=== PATIENT | female | born 1945 | race Hispanic/Latino ===

== ENCOUNTER → 2023-05-16 | Outpatient (CLI) | payer OTHER | END | disposition home or self-care (01) | LOC: RAH 11:20 | PROVIDERS: ATTEND Internal Medicine | DX: R60.0 Localized edema (principal) | CPT/HCPCS: 93971 ==

== ENCOUNTER 2025-01-18 15:57 | Emergency (ER) | payer OTHER, MEDICARE ==
[~2025-01-18] VITALS: Ht 154.9 cm; Wt 54.0 kg
[2025-01-18 16:36] LABS: BASOPHILS # (AUTO) 0.07 K/uL (0.00-0.20); BASOPHILS % (AUTO) 0.6 % (0.0-5.0); EOSINOPHILS % (AUTO) 2.5 % (0.0-8.0); IMMATURE GRANULOCYTE ABSOLUTE 0.04 K/uL (0-1); LYMPHOCYTES # (AUTO) 2.3 K/uL (1.0-4.8); LYMPHOCYTES % (AUTO) 19.4 % (21.0-51.0); MEAN CORPUSCULAR HEMOGLOBIN 31.7 pg (27.0-33.0); MEAN CORPUSCULAR HGB CONC 31.4 g/dL (32.0-36.0); MEAN CORPUSCULAR VOLUME 100.9 fL (79-99); MONOCYTES # (AUTO) 0.6 K/uL (0.1-1.0); MONOCYTES % (AUTO) 4.7 % (3.0-13.0); NEUTROPHILS # (AUTO) 8.7 K/uL (1.8-7.7); NEUTROPHILS % (AUTO) 72.5 % (40.0-77.0); PLATELET COUNT (AUTO) 306 K/uL (130-400); RED BLOOD CELL COUNT(AUTO) 2.18 MIL/uL (4.00-5.50); RED CELL DISTRIBUTION WIDTH 14.7 % (11.0-15.5)
--- NOTE | 2025-01-18 16:40 | ERN ---
General Chief Complaint: Chest Pain Stated Complaint: CHEST PAIN Time Seen by MD: 15:58 Source: patient, family History of Present Illness Initial Comments Patient is a an 79-year-old female coming in complaining of chest pressure chest discomfort. Patient states that that began yesterday and today feels worse. ALong with the she states that she has had some neck discomfort. Allergies: Coded Allergies: alendronate sodium (Unverified Allergy, Unknown, 01/18/25) amitriptyline (Unverified Allergy, Unknown, 01/18/25) Past Medical History Past Medical History: Arthritis, Cancer Medical History Other: KIDNEY CANCER Past Surgical History: Other Surgical History Other: BILATERAL ARM SURGERIES WITH CADAVER BONE ROS Dictation CONSTITUTIONAL: NO CHILLS, NO FEVER, NO WEAKNESS, NO DIAPHORESIS, NO MALAISE. HEAD/FACE: NO SIGNS OF TRAUMA. EENT: NO EYE PAIN, NO BLURRED VISION, NO TEARING, NO DOUBLE VISION, NO EAR PAIN, NO EAR DISCHARGE, NO NOSE PAIN, NO NASAL CONGESTION, NO THROAT PAIN, NO THROAT SWELLING, NO MOUTH PAIN. RESPIRATORY: NO COUGH, NO ORTHOPNEA, NO SOB, NO STRIDOR, NO WHEEZING. CARDIOVASCULAR: CHEST PAIN, NO EDEMA, NO PALPITATIONS, NO SYNCOPE. GASTROINTESTINAL/ABDOMINAL: NO ABDOMINAL PAIN, NO CONSTIPATION, NO DIARRHEA, N O NAUSEA, NO VOMITING. GENITOURINARY: NO ABNORMAL DISCHARGE, NO DYSURIA, NO FREQUENT URINATION, NO HEMATURIA. NO COMPLAINTS OF PAIN IN THE GENITALS. MUSCULOSKELETAL: NO BACK PAIN, NO GOUT, NO JOINT PAIN, NO JOINT SWELLING, NO MUSCLE PAIN, NO MUSCLE STIFFNESS, NO NECK PAIN. INTEGUMENTARY: NO CHANGE IN COLOR, NO CHANGE IN HAIR/NAILS, NO DRYNESS, NO LESION, NO LUMPS, NO RASH. NEUROLOGICAL/PSYCH: NO ANXIETY, NOT DEPRESSED, NO EMOTIONAL PROBLEM, NO HEADACHE, NO NUMBNESS, NO PRE-EXISTING DEFICIT, NO HISTORY OF SEIZURES, NO TREMORS, NO WEAKNESS. HEMATOLOGIC/LYMPHATIC: NOT ANEMIC, NO HISTORY OF BLOOD CLOTS, NO APPARENT BLEEDING, NO BRUISING, GLANDS NOT SWOLLEN. ALL SYSTEMS NEGATIVE, EXCEPT NOTED. Physical Exam Physical Exam Dictation VITAL SIGNS: REVIEWED. GENERAL APPEARANCE: ALERT, ORIENTED X3, NO ACUTE DISTRESS, OBESE. HEAD AND FACE: NON-TRAUMATIC. EYES: PERRL, PINK CONJUNCTIVAS, EYELID NO TRAUMA, ANTERIOR CHAMBER CLEAR. EARS: PINNAS INTACT AND NO SIGNS OF TRAUMA OR ERYTHEMA. EAR CANALS CLEAR AND NO DISCHARGE. TMS NO ERYTHEMA. NOSE: NO DISCHARGE, NO BLEEDING. OROPHARYNX: MOUTH NORMAL, TEETH NO CARIES, TONGUE PINK. PHARYNX CLEAR, NO ERYTHEMA. TONSILS NO EXUDATES, NO ABSCESSES NOTED. MUCOUS MEMBRANE MOIST. NECK: SUPPLE, NON-TENDER, NO THYROMEGALY, NO MASSES, NO JVD, NO BRUITS. BREAST: DEFERRED. CHEST: NO TENDERNESS, NO CREPITUS, NO PARADOXICAL MOVEMENT, NO RETRACTIONS. LUNGS: CLEAR, WELL-VENTILATED, SYMMETRIC, NO RALES, NO WHEEZING, NO RHONCHI, NO STRIDOR, GOOD BREATH SOUNDS BILATERALLY. HEART: REGULAR RATE, REGULAR RHYTHM, NO MURMUR, NO GALLOPS. VASCULAR: NO PERIPHERAL EDEMA. ABDOMEN: SOFT, POSITIVE BOWEL SOUNDS, NONDISTENDED, NO GUARDING, NONTENDER, NO REBOUND, NO MASSES NO HEPATOMEGALY, NO SPLENOMEGALY, NO VO'S SIGN, NO HERNIAS. RECTAL: DEFERRED. GENITAL: DEFERRED. NEUROLOGICAL: NORMAL SPEECH, GROSS MOTOR FUNCTION INTACT, GROSS SENSORY FUNCTION INTACT. MUSCULOSKELETAL: NECK NONTENDER, FULL RANGE OF MOTION, BACK NONTENDER, FULL RANGE OF MOTION. EXTREMITIES: NONTENDER, FULL RANGE OF MOTION. SKIN: COLOR PINK, DRY, NO TURGOR, NO RASH, NO LACERATIONS, NO ABRASIONS, NO CONTUSIONS. LYMPHATICS: DEFERRED. Results Laboratory and Microbiology Lab and Micro Result Laboratory Tests Test 01/18/25 16:26 01/18/25 16:49 01/18/25 17:48 White Blood Count 12.0 K/uL (4.8-10.8) H Red Blood Count 2.18 MIL/uL (4.00-5.50) L Hemoglobin 6.9 g/dL (12.0-16.0) *L Hematocrit 22.0 % (36-48) L Mean Corpuscular Volume 100.9 fL (79-99) H Mean Corpuscular Hemoglobin 31.7 pg (27.0-33.0) Mean Corpuscular Hemoglobin Concent 31.4 g/dL (32.0-36.0) L Red Cell Distribution Width 14.7 % (11.0-15.5) Platelet Count 306 K/uL (130-400) Mean Platelet Volume 11.9 fL (7.5-10.5) H Immature Granulocyte % (Auto) 0.3 % (0-1) Neutrophils (%) (Auto) 72.5 % (40.0-77.0) Lymphocytes (%) (Auto) 19.4 % (21.0-51.0) L Monocytes (%) (Auto) 4.7 % (3.0-13.0) Eosinophils (%) (Auto) 2.5 % (0.0-8.0) Basophils (%) (Auto) 0.6 % (0.0-5.0) Neutrophils # (Auto) 8.7 K/uL (1.8-7.7) H Lymphocytes # (Auto) 2.3 K/uL (1.0-4.8) Monocytes # (Auto) 0.6 K/uL (0.1-1.0) Eosinophils # (Auto) 0.30 K/uL (0.00-0.70) Basophils # (Auto) 0.07 K/uL (0.00-0.20) Absolute Immature Granulocyte (auto 0.04 K/uL (0-1) Nucleated Red Blood Cells 0.0 % (0.0-0.19) Prothrombin Time 9.9 SEC (9.6-11.6) Prothromb Time International Ratio <= 0.93 (0.85-1.15) Activated Partial Thromboplast Time 23.0 SEC (26.3-35.5) L B-Type Natriuretic Peptide 473 pg/mL (0-100) H Sodium Level 137 mmol/L (136-145) Potassium Level 4.9 mmol/L (3.5-5.1) Chloride Level 107 mmol/L (101-111) Carbon Dioxide Level 19 mmol/L (21-32) L Blood Urea Nitrogen 37 mg/dL (7-18) H Creatinine 2.2 mg/dL (0.5-1.0) H Glomerular Filtration Rate Calc 22 mL/min (>90) Random Glucose 109 mg/dL (70-105) H Total Calcium 8.2 mg/dL (8.5-10.1) L Magnesium Level 2.50 mg/dL (1.80-2.40) H Total Creatine Kinase 88 U/L (21-232) Troponin I High Sensitivity 8.2 ng/L (4-50) 8 ng/L (4-50) Labs Reviewed?: Yes EKG/XRAY/US/CT/MRI EKG Comment 01/18/2025 TIME 4:04 P.M. VENTRICULAR RATE 85 SINUS RHYTHM SC [address] WAVE ELEVATION OR DEPRESSION X-RAY Comment [facility] [address] [place] [address] IMAGING REPORT Signed PATIENT: JOVANA BOWDEN MR#: [id number] : 1945 SEX: F AGE: 79 LOCATION: [facility] ORDER 1604 STATUS: REG ER REPORT#: [id number] SERVICE 1602 REASON: cp ORDERING PHYSICIAN: MATILDE JORDAN MD PROCEDURE: CXR1VW - CHEST 1VW CHEST 1VW HISTORY: Chest pain COMPARISON: None FINDINGS: A frontal projection of the chest was obtained. No acute pulmonary infiltrates is seen. The heart is borderline enlarged. Degenerative changes are seen. No evidence of aortic calcification is seen. IMPRESSION: 1. No acute pulmonary infiltrate is seen. DICTATED BY: TENNILLE SIMPSON MD DATE: 01/18/25 1640 ELECTRONICALLY SIGNED BY: TENNILLE SIMPSON MD DATE: 01/18/25 1648 [facility] MDM: DIFFERENTIAL DIAGNOSIS: ANEMIA, CHEST PAIN, RATIONALE: TESTS CONSIDERED AND ORDERED SECONDARY TO SHARED DECISION MAKING INCLUDE: PREVIOUS OUTSIDE RECORDS REVIEWED: OLD ER VISITS. RISK OF COMPLICATION AND/OR MORBIDITY OR MORTALITY OF PATIENT MANAGEMENT: NONE MEDICATIONS-PER MEDICATION RECONCILIATION NEED FOR HOSPITALIZATION: PATIENT DOES NOT MEET CRITERIA FOR HOSPITALIZATION. NEED FOR EMERGENCY MAJOR/MINOR SURGERY: NO THERE ARE NO SOCIAL CONCERNS WITH THIS PATIENT. PRESCRIPTION DRUG MANAGEMENT PRESCRIPTIONS WILL INCLUDE SYMPTOMATIC CARE PATIENT'S PRIOR EXTERNAL MEDICAL RECORDS FROM OTHER ER VISITS WERE REVIEWED BY ME INDICATED. PRIOR TESTING AND RESULTS FROM PREVIOUS VISITS WERE REVIEWED. PRIOR TESTS WERE TAKEN INTO ACCOUNT WITH MEDICAL DECISION MAKING AND RESOURCE UTILIZATION, INDEPENDENT HISTORIAN/HISTORIANS WERE USED TO OBTAIN COMPLETE MEDICAL HISTORY. PATIENT IS A 79-YEAR-OLD FEMALE COMING IN TO BE EVALUATED FOR CHEST PRESSURE CHEST DISCOMFORT. SHE STATES THAT THIS HAS BEEN ONGOING FOR A COUPLE OF DAYS. SHE ALSO STATES THAT SHE WAS HAD MULTIPLE SURGERIES IN THE PAST MULTIPLE ADMISSIONS IN THE PAST DOES NOT WISH TO STAY FOR FURTHER EVALUATION. PATIENT WAS TOLD THAT SHE HAS A HEMOGLOBIN OF 6.9 AND DUE TO THE ONGOING CHEST PRESSURE CHEST DISCOMFORT MY PLAN WAS TO ADMIT PATIENT BUT SHE REFUSED. SHE STATES IT IS ALL SHE WANTS IS THE BLOOD TRANSFUSION AND WANTS TO LEAVE AGAINST MEDICAL ADVICE. PATIENT WAS ALERT AND ORIENTED [employer] COLLABORATE WITH PATIENT'S DECISION TO LEAVE AFTER BLOOD TRANSFUSION. I DID ADVISED HER IF SHE CHANGES HER MIND SHE COULD ALWAYS RETURN FOR FURTHER EVALUATION. I INDEPENDENTLY INTERPRETED THE TEST THAT WERE PERFORMED, RESULTS WERE REVIEWED BY ME AND CONSIDERED FINDINGS ON RADIOLOGY IF ORDERED. MEDICAL MANAGEMENT AND EXAMINATION INTERPRETATION DISCUSSIONS WERE HAD BY ME WITH OTHER QUALIFIED HEALTHCARE PROFESSIONALS INDICATED FOR THE PATIENT'S CARE. Patient has received a single unit of blood. She would like to go home. I will discharge her. ED Course Orders Procedure Category Date Status Time Cbc With Differential LAB 01/18/25 Complete 16:02 Prothrombin Time With LAB 01/18/25 Complete INR 16:02 B-Type Natriuretic LAB 01/18/25 Complete Peptide 16:02 Chest 1vw RAD 01/18/25 Resulted 16:02 12 Lead Ekg Tracing- EKG 01/18/25 Logged Technical 16:02 Lactated Ringers PHA 01/18/25 Complete 1000ml (Lactated 16:30 Partial LAB 01/18/25 Complete Thromboplastin Time 16:02 Cardiac Panel LAB 01/18/25 Complete 16:26 Basic Metabolic Panel LAB 01/18/25 Complete 16:40 Magnesium LAB 01/18/25 Complete 16:40 Type And Screen BBK 01/18/25 Complete 17:00 Troponin I High LAB 01/18/25 Complete Sensitivity 17:32 Nitroglycerin 0.4mg PHA 01/18/25 In Process Sl Tab (Nitrostat) 18:30 Ondansetron 4mg Inj PHA 01/18/25 In Process (Zofran 4mg Inj) 18:30 Lidocaine Hcl 2% PHA 01/18/25 In Process Viscous (Lidocaine Hcl 18:30 Mag/Alum/Simeth 30ml PHA 01/18/25 In Process (Maalox Plus 30ml) 18:30 Pantoprazole 40mg Inj PHA 01/18/25 In Process (Protonix 40mg Inj 18:30 Rbc-No Active Bleeding BBK 01/18/25 Complete 18:52 Current Medications Medications (Trade) Dose Ordered Sig/Timothy Route PRN Reason Start Time Stop Time Status Last Admin Dose Admin Al Hydroxide/Mg Hydroxide (MAALox PLUS 30ML) 30 ml ONCE PO 01/18/25 18:30 01/18/25 23:59 01/18/25 18:53 Lactated Ringer's 1,000 ml @ 0 mls/hr ONCE ONCE IV 01/18/25 16:30 01/18/25 16:31 DC 01/18/25 18:04 Lidocaine HCl (Lidocaine HCl 2% Viscous) 10 ml ONCE PO 01/18/25 18:30 01/18/25 23:59 01/18/25 18:53 Nitroglycerin (Nitrostat) 0.4 mg AD PRN SL CHEST PAIN 01/18/25 18:30 02/17/25 18:29 01/18/25 18:54 Ondansetron HCl (zoFRAN 4MG INJ) 4 mg ONCE IVP 01/18/25 18:30 01/18/25 23:59 01/18/25 18:54 Pantoprazole Sodium (PROTonix 40MG INJ) 40 mg ONCE IVP 01/18/25 18:30 01/18/25 23:59 01/18/25 18:53 Vital Signs Date Time Temp Pulse Resp B/P (MAP) Pulse Ox O2 Delivery O2 Flow Rate FiO2 01/18/25 23:00 98.8 71 17 132/53 97 Room Air* 0 01/18/25 22:00 98.4 71 18 114/51 01/18/25 22:00 98.4 71 18 114/51 97 Room Air* 0 01/18/25 21:30 98.6 75 18 139/54 96 Room Air* 0 01/18/25 21:30 98.6 75 18 139/54 01/18/25 20:50 98.8 73 18 127/49 97 Room Air* 0 01/18/25 20:50 98.8 73 18 127/49 01/18/25 20:35 98.8 75 17 122/53 01/18/25 20:35 98.8 75 17 122/53 96 Room Air* 0 01/18/25 20:28 99.0 76 20 127/49 96 Room Air* 0 01/18/25 20:28 99.0 76 20 127/49 01/18/25 16:26 99.1 94 24 142/81 96 Room Air* 0 01/18/25 15:58 98.8 90 20 147/49 99 Room Air 0 DX & DISP Disposition: Discharge Departure Impression: Primary Impression: Chest pain Additional Impression: Anemia Condition: Stable Referrals: DALIA JESUS MD (PCP) MATILDE JORDAN MD January 18, 2025 16:40 SOHA CARLIN MD January 18, 2025 23:12
[2025-01-18 16:45] LABS: INR <= 0.93 (0.85-1.15); PROTHROMBIN TIME 9.9 SEC (9.6-11.6)
--- NOTE | 2025-01-18 16:48 | HMCIMG ---
CHEST 1VW HISTORY: Chest pain COMPARISON: None FINDINGS: A frontal projection of the chest was obtained. No acute pulmonary infiltrates is seen. The heart is borderline enlarged. Degenerative changes are seen. No evidence of aortic calcification is seen. IMPRESSION: 1. No acute pulmonary infiltrate is seen.
[2025-01-18 17:00] LABS: B-TYPE NATRIURETIC PEPTIDE 473 pg/mL (0-100)
--- NOTE | 2025-01-18 17:08 | NUR ---
PATIENT MADE AWARE OF HER HEMOGLOBIN LEVEL OF 6.9. EDUCATED PATIENT THAT SHE WAS IN NEED OF A BLOOD TRANSFUSION DUE TO HER HEMOGLOBIN LEVEL. PATIENT REFUSED BLOOD TRANSFUSION AND PROVIDED A SIGNATURE ON THE REFUSAL FORM. EDUCATED ON DANGERS OF REFUSING A BLOOD TRANSFUSION AND PT AGREED AND UNDERSTOOD AND STILL REFUSED.
[2025-01-18 17:11] LABS: CREATININE 2.2 mg/dL (0.5-1.0); MAGNESIUM 2.5 mg/dL (1.80-2.40); POTASSIUM 4.9 mmol/L (3.5-5.1)
--- NOTE | 2025-01-18 18:00 | NUR ---
PT ADVISED BY DR JORDAN,MATTIE RN, AND FRANCIS GARCIA THAT HER HGB LOW AND NEEDS BLOOD TRANSFUSION. PT AGREED TO DO BLOOD TRANSFUSION BUT DOES NOT AGREE TO BE ADMITTED. PT WILL HAVE BLOOD TRANSFUSION AND WILL BE LEAVING AMA.
[2025-01-18] MEDS: LACTATED RINGERS 1000ML 1,000 ML IV ONE (18:04)
[2025-01-18] MEDS: LIDOCAINE HCL 2% VISCOUS 15 ML UDCUP PO SCH (18:53)
[2025-01-18] MEDS: PANTOPrazole 40 MG/VIAL IVP SCH (18:53)
[2025-01-18] MEDS: MAG/ALUM/SIMETH 30 ML UDCUP PO SCH (18:53)
[2025-01-18] MEDS: ondanSETRON 4MG INJ IVP SCH (18:54)
[2025-01-18] MEDS: NITROGLYCERIN 0.4 MG SL TAB SL PRN (18:54)
[2025-01-18 20:28] VITALS: BP 127/49; PULSE 76; RESP 20; TEMP 98.9
[2025-01-18 20:35] VITALS: BP 122/53; PULSE 75; RESP 17; TEMP 98.7
[2025-01-18 20:50] VITALS: BP 127/49; PULSE 73; RESP 18; TEMP 98.8
[2025-01-18 21:30] VITALS: BP 139/54; PULSE 75; RESP 18; TEMP 98.6
[2025-01-18 22:00] VITALS: BP 114/51; PULSE 71; RESP 18; TEMP 98.5
[2025-01-18 23:00] VITALS: BP 132/53; PULSE 71; RESP 17; TEMP 98.7; O2SAT 97
--- NOTE | 2025-01-19 07:43 | EKG ---
[facility] Test Date: 2025-01-18 Test Time: 16:04:58 Pat Name: JOVANA BOWDEN Department: ED Room: Gender: F Date Pitter: [id number] : 1945 Requested By: MATILDE JORDAN Order Number: [id number] Reading MD: Carlos Manuel Blackburn Measurements Intervals [place] Rate: 85 P: 24 SC: 185 QRS: 17 QRSD: 90 T: 63 QT: 369 QTc: 441 Interpretive Statements Sinus rhythm No previous ECG available for comparison Electronically Signed On 01-19-2025 12:28:31 CDT by Carlos Manuel Blackburn Please click the below link to view image of tracing.
== END 2025-01-18 23:46 | disposition home or self-care (01) ==
LOC: EDH 15:57
DX: D64.9 Anemia, unspecified (principal); R07.89 Other chest pain; M19.90 Unspecified osteoarthritis, unspecified site; Z98.890 Other specified postprocedural states
CPT/HCPCS: 99285; 36430; 96361; 96374; 71045; 96375; 82550; 83735; 84484 ×2; 80048; 83880; 85025; 85610; 85730; 86850; 86900; 86901; 86923; 36415; 93005; P9016; J7120; J2405; J2470